=== PATIENT | female | born 1975 | race African-American/Black ===

== ENCOUNTER 2016-05-15 20:31 | Emergency (ER) | payer OTHER ==
[~2016-05-15] VITALS: Ht 162.6 cm; Wt 104.8 kg
[2016-05-15] MEDS ORDERED: HYDROCHLOROTHIA25 M1 PO (20:48)
[2016-05-15] MEDS ORDERED: KEFLEX500 M1 PO (20:48)
[2016-05-15] MEDS ORDERED: NEXIUM40 M1 PO (20:48)
[2016-05-15] MEDS ORDERED: MULTI-DAY VITA1 EACH PO (20:49)
[2016-05-15] MEDS ORDERED: CRANBERRY425 MG PO (20:49)
[2016-05-15] MEDS ORDERED: PROAIR HFA8.5 GM INH (20:49)
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
[2016-05-15] MEDS ORDERED: VALIUM5 M2 PO (21:08)
[2016-05-15 21:45] VITALS: BP 111/56
== END 2016-05-15 22:13 ==
LOC: ERH 20:31
DX: S16.1XXA Strain of muscle, fascia and tendon at neck level, initial encounter (principal); S39.012A Strain of muscle, fascia and tendon of lower back, initial encounter; V89.2XXA Person injured in unspecified motor-vehicle accident, traffic, initial encounter